=== PATIENT | male | born 1980 | race Caucasian/White ===

== ENCOUNTER 2019-04-07 19:30 | Emergency (ER) | payer OTHER ==
--- NOTE | 2019-04-08 04:58 | ER ---
DATE SEEN: 04/07/2019 REASON FOR VISIT: Laceration. HISTORY OF PRESENT ILLNESS: This is a 38-year-old male with laceration of the left thumb, that happened at home with a saw accidentally. He says that he is up to date on his immunization, about less than 5 years ago. ALLERGIES: None recorded. PHYSICAL EXAMINATION: GENERAL: He is afebrile and normotensive. EXTREMITIES: The left thumb revealed 1.5 cm sized laceration on the middle phalanx. IMPRESSION: Simple laceration. PLAN: Local anesthesia was obtained, lidocaine without epinephrine. I placed 3 sutures of 4-0 Ethilon with no complications. Local wound care was discussed, and removal of stitches in less than 1 week. /[id number] MIS/LISA
== END 2019-04-07 20:00 | disposition home or self-care (01) ==
LOC: FB.ED 19:33
DX: S61.012A Laceration without foreign body of left thumb without damage to nail, initial encounter (principal); W27.0XXA Contact with workbench tool, initial encounter; Y92.009 Unspecified place in unspecified non-institutional (private) residence as the place of occurrence of the external cause
CPT/HCPCS: 12001; 40830; 99282-25

== ENCOUNTER 2019-09-16 05:12 | Emergency (ER) | payer BC, OTHER ==
[2019-09-16] MEDS ORDERED: Ketorolac 60 MG/2 ML SDV IM ONE (05:38)
[2019-09-16] MEDS ORDERED: Cyclobenzaprine 10 MG Tab PO ONE (05:38)
--- NOTE | 2019-09-16 06:31 | EDM.PDOC ---
ED HPI GENERAL MEDICAL PROBLEM - General Chief Complaint: General Stated Complaint: PULLED MUSCLE Time Seen by Provider: 09/16/19 05:30 Source of Information: Reports: Patient History Limitations: Reports: No Limitations - History of Present Illness INITIAL COMMENTS - FREE TEXT/NARRATIVE: Patient presented to the ED because of left sided chest wall pain. the pain started when he woke up last Saturday with sharp pain,3/10, worse with movements. There is no associated cough or cold symptoms. L lateral chest Pain Score (Numeric/FACES): 3 - Related Data Allergies Allergy/AdvReac Type Severity Reaction Status Date / Time No Known Allergies Allergy Verified 09/16/19 05:20 Home Meds: Home Meds Cyclobenzaprine [Flexeril] 10 mg PO TID PRN #15 tab 09/16/19 [Rx] Ibuprofen 800 mg PO TID PRN #30 tablet 09/16/19 [Rx] Sertraline [Zoloft] 50 mg PO DAILY 09/16/19 [History] atorvaSTATin [Lipitor] 10 mg PO DAILY 09/16/19 [History] Past Medical History - Past Health History Medical/Surgical History: Denies Medical/Surgical History Cardiovascular History: Reports: High Cholesterol Psychiatric History: Reports: Anxiety, Panic Attack, Other (See Below) Other Psychiatric History: hx Terrets syndrome Endocrine/Metabolic History: Reports: Obesity/BMI 30+ - Infectious Disease History Infectious Disease History: Reports: Chicken Pox - Past Surgical History GI Surgical History: Reports: Hernia Repair/Other Social & Family History - Family History Family Medical History: Noncontributory - Tobacco Use Smoking Status *Q: Never Smoker - Caffeine Use Caffeine Use: Reports: Coffee, Soda, Tea - Recreational Drug Use Recreational Drug Use: No ED ROS GENERAL - Review of Systems Review Of Systems: See Below Constitutional: Reports: No Symptoms HEENT: Reports: No Symptoms Respiratory: Reports: No Symptoms Cardiovascular: Reports: No Symptoms Endocrine: Reports: No Symptoms GI/Abdominal: Reports: No Symptoms Musculoskeletal: Reports: Muscle Pain Skin: Reports: No Symptoms Neurological: Reports: No Symptoms Psychiatric: Reports: No Symptoms ED EXAM, GENERAL - Physical Exam Exam: See Below Exam Limited By: No Limitations General Appearance: Alert, WD/WN, No Apparent Distress Ears: Normal External Exam, Normal Canal, Hearing Grossly Normal Nose: Normal Inspection, Normal Mucosa, No Blood Throat/Mouth: Normal Inspection, Normal Lips, Normal Teeth Head: Atraumatic, Normocephalic Neck: Normal Inspection, Supple Respiratory/Chest: No Respiratory Distress, Lungs Clear Cardiovascular: Normal Peripheral Pulses, Regular Rate, Rhythm, No Edema, No Gallop, No JVD, No Murmur GI/Abdominal: Normal Bowel Sounds, Soft, Non-Tender, No Organomegaly, No Distention Back Exam: Normal Inspection Extremities: Normal Inspection Course - Vital Signs Text/Narrative:: reassurance Last Recorded V/S: Last Vital Signs Temp 36.3 C 09/16/19 05:17 Pulse 77 09/16/19 06:32 Resp 18 09/16/19 06:32 BP 127/86 09/16/19 06:32 Pulse Ox 100 09/16/19 06:32 - Orders/Labs/Meds Meds: Medications Discontinued Medications Generic Name Dose Route Start Last Admin Trade Name Freq PRN Reason Stop Dose Admin Cyclobenzaprine HCl 10 mg 09/16/19 05:38 09/16/19 05:51 Flexeril PO 09/16/19 05:39 10 mg ONETIME ONE Administration Ketorolac Tromethamine 60 mg 09/16/19 05:38 09/16/19 05:51 Toradol IM 09/16/19 05:39 60 mg ONETIME ONE Administration Departure - Departure Time of Disposition: 05:45 Disposition: Home, Self-Care 01 Condition: Good Clinical Impression: Muscle strain - Discharge Information Prescriptions: Cyclobenzaprine [Flexeril] 10 mg PO TID PRN #15 tab PRN Reason: Spasms Ibuprofen 800 mg PO TID PRN #30 tablet PRN Reason: Pain Instructions: Muscle Strain Referrals: Nona Segundo NURSE PRACTITIONER HOSPITALIST [Primary Care Provider] - Forms: ED Department Discharge Additional Instructions: Please read discharge instructions on muscle strain Apply ice or heat whichever makes the pain feel better Take flexeril 10 mg 3 times daily as needed for muscle spasm Take ibuprofen 800 mg with tylenol 1000 mg 3 times daily as needed for pain follow up if symptoms persist Sepsis Event Note - Evaluation Sepsis Screening Result: No Definite Risk - Focused Exam Date Exam was Performed: 09/17/19 Time Exam was Performed: 07:18
== END 2019-09-16 06:40 | disposition home or self-care (01) ==
LOC: FB.ED 05:12
DX: S29.011A Strain of muscle and tendon of front wall of thorax, initial encounter (principal); E78.00 Pure hypercholesterolemia, unspecified; F41.9 Anxiety disorder, unspecified; E66.9 Obesity, unspecified; Z79.899 Other long term (current) drug therapy; Z68.31 Body mass index [BMI] 31.0-31.9, adult; X58.XXXA Exposure to other specified factors, initial encounter
CPT/HCPCS: 96372; 99284; A9270; J1885

== ENCOUNTER 2019-10-22 15:02 | Emergency (ER) | payer BC, OTHER ==
--- NOTE | 2019-10-22 15:18 | EDM.PDOC ---
ED HPI GENERAL MEDICAL PROBLEM - General Chief Complaint: Respiratory Problem Stated Complaint: COUGH Time Seen by Provider: 10/22/19 15:15 Source of Information: Reports: Patient History Limitations: Reports: No Limitations - History of Present Illness INITIAL COMMENTS - FREE TEXT/NARRATIVE: Patient presented to the ED because of cough and cold x2 days. there is no associated fever,chills, dyspnea. The cough is mostly non-productive. - Related Data Allergies Allergy/AdvReac Type Severity Reaction Status Date / Time No Known Allergies Allergy Verified 10/22/19 15:08 Home Meds: Home Meds Cyclobenzaprine [Flexeril] 10 mg PO TID PRN #15 tab 09/16/19 [Rx] Ibuprofen 800 mg PO TID PRN #30 tablet 09/16/19 [Rx] Sertraline [Zoloft] 50 mg PO DAILY 09/16/19 [History] atorvaSTATin [Lipitor] 10 mg PO DAILY 09/16/19 [History] Past Medical History - Past Health History Medical/Surgical History: Denies Medical/Surgical History Cardiovascular History: Reports: High Cholesterol Psychiatric History: Reports: Anxiety, Panic Attack, Other (See Below) Other Psychiatric History: hx Terrets syndrome Endocrine/Metabolic History: Reports: Obesity/BMI 30+ - Infectious Disease History Infectious Disease History: Reports: Chicken Pox - Past Surgical History GI Surgical History: Reports: Hernia Repair/Other Social & Family History - Family History Family Medical History: Noncontributory - Caffeine Use Caffeine Use: Reports: Coffee, Soda, Tea ED ROS GENERAL - Review of Systems Review Of Systems: See Below Constitutional: Reports: No Symptoms HEENT: Reports: No Symptoms Respiratory: Reports: Cough. Denies: Sputum Cardiovascular: Reports: No Symptoms Endocrine: Reports: No Symptoms GI/Abdominal: Reports: No Symptoms : Reports: No Symptoms Musculoskeletal: Reports: No Symptoms Skin: Reports: No Symptoms Neurological: Reports: No Symptoms Psychiatric: Reports: No Symptoms Hematologic/Lymphatic: Reports: No Symptoms ED EXAM, GENERAL - Physical Exam Exam: See Below Exam Limited By: No Limitations General Appearance: Alert, No Apparent Distress Nose: Normal Inspection, Normal Mucosa Throat/Mouth: Normal Inspection, Normal Lips, Normal Teeth Head: Atraumatic, Normocephalic Neck: Normal Inspection, Supple, Non-Tender Respiratory/Chest: No Respiratory Distress, Lungs Clear, Normal Breath Sounds, No Accessory Muscle Use, Chest Non-Tender Cardiovascular: Normal Peripheral Pulses, Regular Rate, Rhythm GI/Abdominal: Normal Bowel Sounds, Soft, Non-Tender Back Exam: Normal Inspection, Full Range of Motion Course - Vital Signs Text/Narrative:: reassurance Last Recorded V/S: Last Vital Signs Temp 36.7 C 10/22/19 15:24 Pulse 86 10/22/19 15:24 Resp 18 10/22/19 15:24 BP 133/84 10/22/19 15:24 Pulse Ox 100 10/22/19 15:24 Departure - Departure Time of Disposition: 15:15 Disposition: Home, Self-Care 01 Condition: Good Clinical Impression: URI (upper respiratory infection) - Discharge Information Instructions: Viral Respiratory Infection, [id number] Referrals: Nona Segundo SLATER APPRENTICE [Primary Care Provider] - Forms: ED Department Discharge Additional Instructions: please read discharge instructions on viral URI frequent hand washing increase oral fluids You may take any over the counter cough and cold preparation, take 10 every 4-6 hours as needed for cough follow up if symptoms persist Sepsis Event Note - Evaluation Sepsis Screening Result: No Definite Risk - Focused Exam Date Exam was Performed: 10/23/19 Time Exam was Performed: 11:05
== END 2019-10-22 15:24 | disposition home or self-care (01) ==
LOC: FB.ED 15:02
DX: J06.9 Acute upper respiratory infection, unspecified (principal)
CPT/HCPCS: 99283

== ENCOUNTER 2019-11-12 16:35 | Emergency (ER) | payer BC ==
--- NOTE | 2019-11-12 17:07 | EDM.PDOC ---
ED HPI GENERAL MEDICAL PROBLEM - General Chief Complaint: General Stated Complaint: LIGHTHEADED,NAUSEA Time Seen by Provider: 11/12/19 16:40 Source of Information: Reports: Patient History Limitations: Reports: No Limitations - History of Present Illness INITIAL COMMENTS - FREE TEXT/NARRATIVE: Patient presented to the ED because of cough and cold x 2 weeks which has resolved. Today he c/o spinning sensation especially when he turns his head sideways. There is no associated fever or chills. - Related Data Allergies Allergy/AdvReac Type Severity Reaction Status Date / Time No Known Allergies Allergy Verified 10/22/19 15:08 Home Meds: Home Meds Cyclobenzaprine [Flexeril] 10 mg PO TID PRN #15 tab 09/16/19 [Rx] Ibuprofen 800 mg PO TID PRN #30 tablet 09/16/19 [Rx] Sertraline [Zoloft] 50 mg PO DAILY 09/16/19 [History] atorvaSTATin [Lipitor] 10 mg PO DAILY 09/16/19 [History] Meclizine [Antivert] 25 mg PO Q6H PRN #15 tab 11/12/19 [Rx] Past Medical History - Past Health History Medical/Surgical History: Denies Medical/Surgical History Cardiovascular History: Reports: High Cholesterol Psychiatric History: Reports: Anxiety, Panic Attack, Other (See Below) Other Psychiatric History: hx Terrets syndrome Endocrine/Metabolic History: Reports: Obesity/BMI 30+ - Infectious Disease History Infectious Disease History: Reports: Chicken Pox - Past Surgical History GI Surgical History: Reports: Hernia Repair/Other Social & Family History - Family History Family Medical History: Noncontributory - Tobacco Use Smoking Status *Q: Never Smoker - Caffeine Use Caffeine Use: Reports: Coffee, Soda, Tea ED ROS GENERAL - Review of Systems Review Of Systems: See Below Constitutional: Reports: No Symptoms HEENT: Reports: No Symptoms Respiratory: Reports: No Symptoms Cardiovascular: Reports: No Symptoms Endocrine: Reports: No Symptoms GI/Abdominal: Reports: No Symptoms : Reports: No Symptoms Musculoskeletal: Reports: No Symptoms Skin: Reports: No Symptoms Neurological: Reports: Dizziness Psychiatric: Reports: Anxiety ED EXAM, GENERAL - Physical Exam Exam: See Below Exam Limited By: No Limitations General Appearance: Alert, No Apparent Distress Eye Exam: Bilateral Eye: PERRL Ears: Normal External Exam, Normal Canal Nose: Normal Inspection, Normal Mucosa, No Blood Throat/Mouth: Normal Inspection, Normal Lips, Normal Teeth Head: Atraumatic, Normocephalic Neck: Normal Inspection, Supple, Non-Tender, Full Range of Motion Respiratory/Chest: No Respiratory Distress, Lungs Clear, Normal Breath Sounds Cardiovascular: Normal Peripheral Pulses, Regular Rate, Rhythm, No Edema GI/Abdominal: Normal Bowel Sounds, Soft, Non-Tender, No Organomegaly Back Exam: Normal Inspection, Full Range of Motion Extremities: Normal Inspection, Normal Range of Motion Course - Vital Signs Text/Narrative:: reassurance start on meclizine Last Recorded V/S: Last Vital Signs Temp 36.6 C 11/12/19 16:35 Pulse 78 11/12/19 16:35 Resp 17 11/12/19 16:35 BP 126/76 11/12/19 16:35 Pulse Ox 98 11/12/19 16:35 Departure - Departure Time of Disposition: 17:05 Disposition: Home, Self-Care 01 Condition: Good Clinical Impression: BPV (benign positional vertigo), URI (upper respiratory infection) - Discharge Information Prescriptions: Meclizine [Antivert] 25 mg PO Q6H PRN #15 tab PRN Reason: vertigo Instructions: Benign Positional Vertigo Referrals: Nona Segundo, PROFESSIONAL BASS FISHERMAN [Primary Care Provider] - Forms: ED Department Discharge Additional Instructions: please read discharge instructions on BPV increase oral fluids take meclizine 25 mg every 6 hours as needed for vertigo follow up if symptoms persist Sepsis Event Note - Evaluation Sepsis Screening Result: No Definite Risk - Focused Exam Vital Signs: Vital Signs Temp Pulse Resp BP Pulse Ox 11/12/19 16:35 36.6 C 78 17 126/76 98 Date Exam was Performed: 11/12/19 Time Exam was Performed: 18:28
== END 2019-11-12 17:10 | disposition home or self-care (01) ==
LOC: FB.ED 16:35
DX: H81.10 Benign paroxysmal vertigo, unspecified ear (principal); J06.9 Acute upper respiratory infection, unspecified; E66.9 Obesity, unspecified; E78.00 Pure hypercholesterolemia, unspecified; Z79.899 Other long term (current) drug therapy; F41.9 Anxiety disorder, unspecified; Z68.30 Body mass index [BMI] 30.0-30.9, adult
CPT/HCPCS: 99283

== ENCOUNTER 2020-01-28 20:03 | Emergency (ER) | payer OTHER, BC ==
--- NOTE | 2020-01-28 20:45 | EDM.PDOC ---
ED HPI GENERAL MEDICAL PROBLEM - General Chief Complaint: Back Pain or Injury Stated Complaint: PULLED MUSCLE Time Seen by Provider: 01/28/20 20:25 Source of Information: Reports: Patient History Limitations: Reports: No Limitations - History of Present Illness INITIAL COMMENTS - FREE TEXT/NARRATIVE: c/o R rib pain pt lifting heavy object at [employer], turned and had pulling pain in ribs works 2nd shift, came straight here, took no meds, off at 3a has 4d off over the weekend beginning tomorrow also incidentally noted to have tinea versicolor which is new, just noted by pt - Related Data Allergies Allergy/AdvReac Type Severity Reaction Status Date / Time No Known Allergies Allergy Verified 10/22/19 15:08 Home Meds: Home Meds Cyclobenzaprine [Flexeril] 10 mg PO TID PRN #15 tab 09/16/19 [Rx] Ibuprofen 800 mg PO TID PRN #30 tablet 09/16/19 [Rx] Sertraline [Zoloft] 50 mg PO DAILY 09/16/19 [History] atorvaSTATin [Lipitor] 10 mg PO DAILY 09/16/19 [History] Meclizine [Antivert] 25 mg PO Q6H PRN #15 tab 11/12/19 [Rx] Cyclobenzaprine HCl 10 mg PO TID PRN #15 tablet 01/28/20 [Rx] Fluconazole [Diflucan] 150 mg PO ASDIRECTED #4 tab 01/28/20 [Rx] Past Medical History - Past Health History Medical/Surgical History: Denies Medical/Surgical History Cardiovascular History: Reports: High Cholesterol Psychiatric History: Reports: Anxiety, Panic Attack, Other (See Below) Other Psychiatric History: hx Terrets syndrome Endocrine/Metabolic History: Reports: Obesity/BMI 30+ - Infectious Disease History Infectious Disease History: Reports: Chicken Pox - Past Surgical History GI Surgical History: Reports: Hernia Repair/Other Social & Family History - Family History Family Medical History: Noncontributory - Tobacco Use Smoking Status *Q: Never Smoker - Caffeine Use Caffeine Use: Reports: Coffee, Soda, Tea ED ROS GENERAL - Review of Systems Review Of Systems: See Below Constitutional: Reports: No Symptoms HEENT: Reports: No Symptoms Respiratory: Reports: No Symptoms Cardiovascular: Reports: No Symptoms Endocrine: Reports: No Symptoms GI/Abdominal: Reports: No Symptoms : Reports: No Symptoms Musculoskeletal: Reports: Muscle Pain Skin: Reports: No Symptoms Neurological: Reports: No Symptoms Psychiatric: Reports: No Symptoms Hematologic/Lymphatic: Reports: No Symptoms Immunologic: Reports: No Symptoms ED EXAM, GENERAL - Physical Exam Exam: See Below Exam Limited By: No Limitations General Appearance: Alert, WD/WN, No Apparent Distress Nose: Normal Inspection, Normal Mucosa, No Blood Neck: Normal Inspection, Supple, Non-Tender, Full Range of Motion Respiratory/Chest: No Respiratory Distress, Lungs Clear, Normal Breath Sounds, Other (1+ tender at R lateral chest (under axilla) over ribs ~8-10 without spasm or splinting, no bony tenderness) Cardiovascular: Regular Rate, Rhythm, No Edema, No Murmur GI/Abdominal: Soft Back Exam: Normal Inspection, Full Range of Motion, NT Extremities: Normal Inspection, Normal Range of Motion Neurological: Alert, Oriented, CN II-XII Intact, Normal Cognition, Normal Gait, No Motor/Sensory Deficits Psychiatric: Normal Affect, Normal Mood Skin Exam: Other (skin with multiple brown 1-2 cm plagues across the back with a few 0.5 cm on the upper chest and flanks c/w t. versicolor) Course - Vital Signs Last Recorded V/S: Last Vital Signs Temp 36.4 C 01/28/20 20:19 Pulse 91 01/28/20 20:19 Resp 16 01/28/20 20:19 BP 130/83 01/28/20 20:19 Pulse Ox 98 01/28/20 20:19 Departure - Departure Time of Disposition: 20:46 Disposition: Home, Self-Care 01 Condition: Good Clinical Impression: Chest wall muscle strain, Tinea versicolor - Discharge Information *PRESCRIPTION DRUG MONITORING PROGRAM REVIEWED*: Not Applicable *COPY OF PRESCRIPTION DRUG MONITORING REPORT IN PATIENT ZOE: Not Applicable Prescriptions: Cyclobenzaprine HCl 10 mg PO TID PRN #15 tablet PRN Reason: Spasms Fluconazole [Diflucan] 150 mg PO ASDIRECTED #4 tab Instructions: Muscle Strain, Tinea Versicolor Referrals: Nona Segundo CHAIR MECHANIC [Primary Care Provider] - Additional Instructions: For muscle pain, take ibuprofen 200 mg 3 tabs and acetaminophen 500 mg 2 tabs 4 times a day for 5 days, longer if needed. Use ice for 10 minutes 4 times a day for 2 days as needed. For spasm, take cyclobenzaprine 10 mg 1 tab up to 3 times a day as needed. For fungal skin infection, take fluconazole 150 mg 2 tabs once and then take 2 tabs again in one week. May return to work in 4 days without restrictions. No work tonight. Avoid lifting over 5 pounds in the next 4 days. See your doctor in 5-6 days if you are feeling worse. Sepsis Event Note (ED) - Evaluation Sepsis Screening Result: No Definite Risk - Focused Exam Vital Signs: Vital Signs Temp Pulse Resp BP Pulse Ox 01/28/20 20:19 36.4 C 91 16 130/83 98
== END 2020-01-28 21:00 | disposition home or self-care (01) ==
LOC: FB.ED 20:03
DX: S29.011A Strain of muscle and tendon of front wall of thorax, initial encounter (principal); B36.0 Pityriasis versicolor; F41.0 Panic disorder [episodic paroxysmal anxiety]; E78.00 Pure hypercholesterolemia, unspecified; E66.9 Obesity, unspecified; Z68.32 Body mass index [BMI] 32.0-32.9, adult; Z79.899 Other long term (current) drug therapy; X50.0XXA Overexertion from strenuous movement or load, initial encounter
CPT/HCPCS: 99283

== ENCOUNTER 2020-06-04 17:49 | Emergency (ER) | payer BC ==
--- NOTE | 2020-06-04 18:31 | EDM.PDOC ---
ED HPI GENERAL MEDICAL PROBLEM - General Chief Complaint: Gastrointestinal Problem Stated Complaint: diarrhea today Time Seen by Provider: 06/04/20 18:27 Source of Information: Reports: Patient History Limitations: Reports: No Limitations - History of Present Illness INITIAL COMMENTS - FREE TEXT/NARRATIVE: Jimmy comes into [facility] ED with 2 episodes of diarrheal stools this afternoon, associated with some abdominal cramping over 2 hours. Sxs have since improved in the ED since admission, and he would like to be discharge. Of interest, he had a well exam just 3 days ago, blood tests pending. - Related Data Allergies Allergy/AdvReac Type Severity Reaction Status Date / Time No Known Allergies Allergy Verified 10/22/19 15:08 Home Meds: Home Meds Cyclobenzaprine [Flexeril] 10 mg PO TID PRN #15 tab 09/16/19 [Rx] Ibuprofen 800 mg PO TID PRN #30 tablet 09/16/19 [Rx] Sertraline [Zoloft] 50 mg PO DAILY 09/16/19 [History] atorvaSTATin [Lipitor] 10 mg PO DAILY 09/16/19 [History] Meclizine [Antivert] 25 mg PO Q6H PRN #15 tab 11/12/19 [Rx] Cyclobenzaprine HCl 10 mg PO TID PRN #15 tablet 01/28/20 [Rx] Fluconazole [Diflucan] 150 mg PO ASDIRECTED #4 tab 01/28/20 [Rx] Past Medical History - Past Health History Medical/Surgical History: Denies Medical/Surgical History Cardiovascular History: Reports: High Cholesterol Psychiatric History: Reports: Anxiety, Panic Attack, Other (See Below) Other Psychiatric History: hx Terrets syndrome Endocrine/Metabolic History: Reports: Obesity/BMI 30+ - Infectious Disease History Infectious Disease History: Reports: Chicken Pox - Past Surgical History GI Surgical History: Reports: Hernia Repair/Other Social & Family History - Family History Family Medical History: No Pertinent Family History - Caffeine Use Caffeine Use: Reports: Coffee, Soda, Tea ED ROS GENERAL - Review of Systems Review Of Systems: Comprehensive ROS is negative, except as noted in HPI. ED EXAM, GI/ABD - Physical Exam Exam: See Below Exam Limited By: No Limitations General Appearance: Alert, WD/WN, No Apparent Distress Eyes: Bilateral: Normal Appearance, EOMI Ears: Normal External Exam Nose: Normal Inspection Throat/Mouth: Normal Inspection, Normal Oropharynx, No Airway Compromise Head: Normocephalic Neck: Normal Inspection, Supple, Non-Tender Respiratory/Chest: Lungs Clear, Chest Non-Tender Cardiovascular: Regular Rate, Rhythm, No Murmur GI/Abdominal Exam: Normal Bowel Sounds, Soft, Non-Tender, No Organomegaly, No Distention, No Mass (Male) Exam: Deferred Rectal (Males) Exam: Deferred Back Exam: Normal Inspection Extremities: Normal Inspection Neurological: Alert, Oriented, CN II-XII Intact, Normal Cognition, No Motor/Sensory Deficits Psychiatric: Normal Affect, Anxious Skin Exam: Warm, Dry, Intact, Normal Color Lymphatic: No Adenopathy Course - Vital Signs Text/Narrative:: Patient remained asx during ED evaluation. Departure - Departure Time of Disposition: 18:30 Disposition: Home, Self-Care 01 Condition: Good Clinical Impression: Diarrhea - Discharge Information *PRESCRIPTION DRUG MONITORING PROGRAM REVIEWED*: Not Applicable *COPY OF PRESCRIPTION DRUG MONITORING REPORT IN PATIENT ZOE: Not Applicable Referrals: PCP,None [Primary Care Provider] - Forms: ED Department Discharge - Problem List & Annotations (1) Diarrhea SNOMED Code(s): 80847879 Code(s): R19.7 - DIARRHEA, UNSPECIFIED Status: Acute Annotation/Comment:: I suggested sxs cares, Imodium for relapse of sxs, and follow up if needed. - Problem List Review Problem List Initiated/Reviewed/Updated: Yes - Assessment/Plan Plan: Follow up with PCP if needed.
== END 2020-06-04 18:35 | disposition home or self-care (01) ==
LOC: FB.ED 17:49
DX: R19.7 Diarrhea, unspecified (principal); E78.00 Pure hypercholesterolemia, unspecified; F41.9 Anxiety disorder, unspecified; E66.9 Obesity, unspecified; Z68.29 Body mass index [BMI] 29.0-29.9, adult; Z79.899 Other long term (current) drug therapy
CPT/HCPCS: 99282; 99283

== ENCOUNTER 2020-11-07 16:28 | Emergency (ER) | payer BC ==
--- NOTE | 2020-11-07 16:34 | EDM.PDOC ---
ED HPI GENERAL MEDICAL PROBLEM - General Time Seen by Provider: 11/07/20 16:33 Source of Information: Reports: Patient History Limitations: Reports: No Limitations - History of Present Illness INITIAL COMMENTS - FREE TEXT/NARRATIVE: 40-year-old male who reports beginning about 7 days ago he developed nasal congestion, cough and some low-grade fever. His symptoms have been fairly consistent but mild. He had a fever of 100F today and was told by his work that he had to that he could not work today. He denies any pain. He rates his pain as a 0/10. He has no shortness of breath. He has no loss of taste or smell sense. He has been able to eat and drink normally. There has been no nausea or vomiting. He did have some diarrhea last week but that has resolved. No weakness or dizziness. There are no other associated signs or symptoms. There are no other modifying factors. Onset: Other (7 days ago) Duration: Constant Location: Reports: Other (Not applicable) Quality: Reports: Other (No pain) Severity: Mild Improves with: Reports: None Worsens with: Reports: None Context: Reports: Other (As above) Associated Symptoms: Reports: No Other Symptoms (Nothing except as above.) Treatments [employer]: Reports: Other (see below) (Nothing.) - Related Data Allergies Allergy/AdvReac Type Severity Reaction Status Date / Time No Known Allergies Allergy Verified 11/07/20 17:02 Home Meds: Home Meds Cyclobenzaprine [Flexeril] 10 mg PO TID PRN #15 tab 09/16/19 [Rx] Ibuprofen 800 mg PO TID PRN #30 tablet 09/16/19 [Rx] Sertraline [Zoloft] 50 mg PO DAILY 09/16/19 [History] atorvaSTATin [Lipitor] 10 mg PO DAILY 09/16/19 [History] Meclizine [Antivert] 25 mg PO Q6H PRN #15 tab 11/12/19 [Rx] Cyclobenzaprine HCl 10 mg PO TID PRN #15 tablet 01/28/20 [Rx] Fluconazole [Diflucan] 150 mg PO ASDIRECTED #4 tab 01/28/20 [Rx] Past Medical History Cardiovascular History: Reports: High Cholesterol Psychiatric History: Reports: Anxiety, Depression, Panic Attack, Other (See Below) Other Psychiatric History: hx Terrets syndrome Endocrine/Metabolic History: Reports: Obesity/BMI 30+ - Infectious Disease History Infectious Disease History: Reports: Chicken Pox - Past Surgical History GI Surgical History: Reports: Hernia, Inguinal (Bilateral) Social & Family History - Tobacco Use Tobacco Use Status *Q: Unknown Ever Used Tobacco (Nonsmoker.) - Caffeine Use Caffeine Use: Reports: Coffee, Soda, Tea - Alcohol Use Alcohol Use History: No - Living Situation & Occupation Occupation: Employed (Works at [employer] ED ROS GENERAL - Review of Systems Review Of Systems: See Below Constitutional: Reports: Fever HEENT: Reports: Other (Nasal congestion.) Respiratory: Reports: Cough. Denies: Shortness of Breath, Pleuritic Chest Pain Cardiovascular: Reports: No Symptoms Endocrine: Reports: No Symptoms GI/Abdominal: Reports: No Symptoms (Did have some diarrhea last week but that has resolved.) : Reports: No Symptoms Musculoskeletal: Reports: No Symptoms Skin: Reports: No Symptoms Neurological: Reports: No Symptoms Psychiatric: Reports: No Symptoms Hematologic/Lymphatic: Reports: No Symptoms Immunologic: Reports: No Symptoms ED EXAM, GENERAL - Physical Exam Exam: See Below Exam Limited By: No Limitations General Appearance: Alert, WD/WN, No Apparent Distress Eye Exam: Bilateral Eye: EOMI, Normal Inspection Ears: Normal External Exam, Hearing Grossly Normal Ear Exam: Bilateral Ear: Auricle Normal Nose: No Blood, Nasal Drainage, Clear Rhinorrhea Throat/Mouth: Normal Inspection, Normal Lips, Normal Oropharynx, Normal Voice, No Airway Compromise Head: Atraumatic, Normocephalic Neck: Normal Inspection, Supple, Non-Tender, Full Range of Motion Respiratory/Chest: No Respiratory Distress, Lungs Clear, Normal Breath Sounds, No Accessory Muscle Use, Chest Non-Tender Cardiovascular: Normal Peripheral Pulses, Regular Rate, Rhythm, No Murmur Peripheral Pulses: 2+: Radial (L), Radial (R) GI/Abdominal: Normal Bowel Sounds, Soft, Non-Tender, No Mass Back Exam: Normal Inspection, Full Range of Motion Extremities: Normal Inspection, Normal Range of Motion, Non-Tender, Normal Capillary Refill, No Pedal Edema Neurological: Alert, Oriented, CN II-XII Intact, Normal Cognition, No Motor/Sensory Deficits Psychiatric: Normal Affect Skin Exam: Warm, Dry, Intact, Normal Color, No Rash Course - Vital Signs Last Recorded V/S: Last Vital Signs Temp 36.8 C 11/07/20 16:50 Pulse 89 11/07/20 16:50 Resp 18 11/07/20 16:50 BP 151/88 H 11/07/20 16:50 Pulse Ox 98 11/07/20 16:50 - Orders/Labs/Meds Labs: Laboratory Tests 11/07/20 Range/Units 16:30 SARS-CoV-2 RNA (ALPESH) Negative (NEGATIVE) - Re-Assessments/Exams Free Text/Narrative Re-Assessment/Exam: 11/07/20 17:27: Patient's rapid Covid test was negative. He remains vitally stable. He does appear to have a viral URI. With the negative COVID test, he should be cleared to go back to work with the usual precautions. Departure - Departure Time of Disposition: 17:35 Disposition: Home, Self-Care 01 Condition: Good Clinical Impression: Viral URI - Discharge Information Instructions: Viral Respiratory Infection, [id number] Referrals: Nona Segundo [facility]ABILIT[facility] WORKER [Primary Care Provider] - Forms: ED Return to Work/School Form Additional Instructions: Your COVID test was negative. You do appear to have a viral upper respiratory infection but it does not appear to be Covid. You should continue the usual precautions with social distancing, good hand washing and masking but you would be cleared to go back to work. Back to the emergency department for trouble breathing, vomiting, severe weakness or any other concerning signs or symptoms. Sepsis Event Note (ED) - Focused Exam Vital Signs: Vital Signs Temp Pulse Resp BP Pulse Ox 11/07/20 16:50 36.8 C 89 18 151/88 H 98
== END 2020-11-07 17:45 | disposition home or self-care (01) ==
LOC: FB.ED 16:28
DX: J06.9 Acute upper respiratory infection, unspecified (principal); E78.00 Pure hypercholesterolemia, unspecified; E66.9 Obesity, unspecified; Z68.32 Body mass index [BMI] 32.0-32.9, adult; Z20.822 Contact with and (suspected) exposure to COVID-19; Z79.899 Other long term (current) drug therapy
CPT/HCPCS: 99283; U0002

== ENCOUNTER 2020-11-24 11:30 | Emergency (ER) | payer BC ==
--- NOTE | 2020-11-24 12:15 | EDM.PDOC ---
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, at a machine, takes ibuprofen for sore forearms, using a tennis elbow splint or neoprene elbow splint was discussed - Related Data Allergies Allergy/AdvReac Type Severity Reaction Status Date / Time No Known Allergies Allergy Verified 11/07/20 17:02 Home Meds: Home Meds Sertraline [Zoloft] 50 mg PO DAILY 09/16/19 [History] atorvaSTATin [Lipitor] 10 mg PO DAILY 09/16/19 [History] Fluconazole [Diflucan] 150 mg PO WEEKLY #4 tab 11/24/20 [Rx] Selenium Sulfide [Selenium Sulfide 2.5% Lotion] 120 ml .XX WEEKLY #1 bottle 11/24/20 [Rx] Past Medical History - Past Health History Medical/Surgical History: Denies Medical/Surgical History Cardiovascular History: Reports: High Cholesterol Psychiatric History: Reports: Anxiety, Depression, Panic Attack, Other (See Below) Other Psychiatric History: History of Tourette's Syndrome. Endocrine/Metabolic History: Reports: Obesity/BMI 30+ - Infectious Disease History Infectious Disease History: Reports: Chicken Pox - Past Surgical History GI Surgical History: Reports: Hernia, Inguinal (Bilateral) Social & Family History - Family History Family Medical History: No Pertinent Family History - Caffeine Use Caffeine Use: Reports: Coffee, Soda, Tea - Living Situation & Occupation Occupation: Employed (Works at [employer]) ED ROS GENERAL - Review of Systems Review Of Systems: See Below Constitutional: Reports: No Symptoms HEENT: Reports: No Symptoms Respiratory: Reports: No Symptoms Cardiovascular: Reports: No Symptoms Endocrine: Reports: No Symptoms GI/Abdominal: Reports: No Symptoms : Reports: No Symptoms Musculoskeletal: Reports: No Symptoms Skin: Reports: Rash Neurological: Reports: No Symptoms Psychiatric: Reports: No Symptoms Hematologic/Lymphatic: Reports: No Symptoms Immunologic: Reports: No Symptoms ED EXAM, SKIN/RASH Exam: See Below Exam Limited By: No Limitations General Appearance: Alert, WD/WN, No Apparent Distress Respiratory/Chest: No Respiratory Distress Cardiovascular: Regular Rate, Rhythm Back Exam: Other (typical tinea versicolor about 2/3rd less extensive than when I saw him one year ago, brown low papules of 0.5 to 1 cm across lower back and lower abd, dry, ext x 4 spared, upper back spared) Neurological: Alert, Oriented, CN II-XII Intact, Normal Cognition, No Motor/Sensory Deficits Psychiatric: Normal Affect, Normal Mood Departure - Departure Time of Disposition: 12:10 Disposition: Home, Self-Care 01 Condition: Good Clinical Impression: Tinea versicolor - Discharge Information *PRESCRIPTION DRUG MONITORING PROGRAM REVIEWED*: Not Applicable *COPY OF PRESCRIPTION DRUG MONITORING REPORT IN PATIENT ZOE: Not Applicable Prescriptions: Fluconazole [Diflucan] 150 mg PO WEEKLY #4 tab Selenium Sulfide [Selenium Sulfide 2.5% Lotion] 120 ml .XX WEEKLY #1 bottle Instructions: Tinea Versicolor Additional Instructions: Take fluconazole 150 mg 2 tabs by mouth now, repeat in 1 week. Use 2.5% selenium and apply a thin layer for 10 minutes once of week. See your doctor as needed.
== END 2020-11-24 12:33 | disposition home or self-care (01) ==
LOC: FB.ED 11:30
DX: B36.0 Pityriasis versicolor (principal); E78.00 Pure hypercholesterolemia, unspecified; E66.9 Obesity, unspecified; Z68.32 Body mass index [BMI] 32.0-32.9, adult
CPT/HCPCS: 99282

== ENCOUNTER 2022-05-27 11:26 | Emergency (ER) | payer BC | END 2022-05-27 12:12 | disposition home or self-care (01) | LOC: FB.ED 11:26 | DX: R10.9 Unspecified abdominal pain (principal); E78.00 Pure hypercholesterolemia, unspecified; E66.9 Obesity, unspecified; Z87.442 Personal history of urinary calculi; Z79.899 Other long term (current) drug therapy | CPT/HCPCS: 99283 ==